=== PATIENT | male | born 1995 | race Caucasian/White ===

== ENCOUNTER 2017-11-28 08:07 | Emergency (ER) | payer OTHER ==
--- NOTE | 2017-11-28 10:02 | CT ---
HEAD CT WITHOUT CONTRAST: DATE: 11/28/17. COMPARISON: None. HISTORY: Head injury during seizure, history of seizures. TECHNIQUE: Serial axial CT imaging is obtained at 4.8 mm intervals from the vertex through the skull base withou t contrast. FINDINGS: Imaged paranasal sinuses and mastoid air cells well aerated. No displaced calvarial fracture. No in tracranial hemorrhage, midline shift, or mass effect. There is a linear area of calcific density within the lateral aspect of the posterior fossa on image 5 which is felt to represent volume averaging with the adjacent skull base. IMPRESSION: No acute findings. Followup brain MRI would be the study of choice to evaluate for an underlying sei zure focus as clinically warranted. POS: LUIS FERNANDO
== END 2017-11-28 09:22 | disposition home or self-care (01) ==
LOC: SCSER 08:07
DX: S09.90XA Unspecified injury of head, initial encounter (principal); S00.412A Abrasion of left ear, initial encounter; R56.9 Unspecified convulsions; G43.909 Migraine, unspecified, not intractable, without status migrainosus; Z79.899 Other long term (current) drug therapy
CPT/HCPCS: 70450